=== PATIENT | female | born 1990 | race Caucasian/White ===

== ENCOUNTER 2019-07-04 19:38 | Inpatient (IN) | payer MEDICAID, OTHER ==
[~2019-07-04] VITALS: Ht 160 cm; Wt 55.8 kg
[2019-07-04] MEDS ORDERED: ACETAMINOPHEN 500 MG TABLET PO ONE (20:00)
[2019-07-04] MEDS ORDERED: SODIUM CHLORIDE 0.9% 1,000ML IVBOLUS ONE (20:00)
[2019-07-04] MEDS ORDERED: ALBUTEROL/IPRATROPIUM 2.5MG/0.5MG, 3 ML NPPB ONE (20:00)
[2019-07-04] MEDS ORDERED: SODIUM CHLORIDE FLUSH 10ML SYR IVF ONE (20:00)
[2019-07-04] MEDS ORDERED: ACETAMINOPHEN 500 MG TABLET ONE ×2 (20:10→20:11)
[2019-07-04 20:49] LABS: BASOPHILS # (AUTO) 0.01 x10^3/uL (0-0.1); BASOPHILS % (AUTO) 0 % (0-1); EOSINOPHILS % (AUTO) 0 % (1-7); LYMPHOCYTES # (AUTO) 0.52 x10^3/uL (1-3.4); LYMPHOCYTES % (AUTO) 5 % (22-44); MD NO; MEAN CORPUSCULAR HEMOGLOBIN 30.3 pg (27.0-34.8); MEAN CORPUSCULAR HGB CONC 32.4 g/dL (32.4-35.8); MEAN CORPUSCULAR VOLUME 93.4 fL (80-100); MEAN PLATELET VOLUME 8.2 fL (7.4-10.4); MONOCYTES # (AUTO) 0.65 x10^3/uL (0.2-0.8); MONOCYTES % (AUTO) 6 % (2-9); NEUTROPHILS # (AUTO) 8.97 x10^3/uL (1.8-6.8); NEUTROPHILS % (AUTO) 88 % (42-75); PLATELET COUNT 182 x10^3/uL (130-400); RED BLOOD COUNT 4.91 x10^6/uL (3.82-5.3); RED CELL DISTRIBUTION WIDTH 13.6 % (9.6-15.2)
[2019-07-04] MEDS ORDERED: ALBU1.25 NEB (20:56)
[2019-07-04 20:59] LABS: ALANINE AMINOTRANSFERASE 29 U/L (12-78); ALBUMIN 3.2 g/dL (3.4-5.0); ANION GAP 5 mmol/L (5-15); CALCIUM 8.2 mg/dL (8.5-10.1); CHLORIDE 102 mmol/L (98-107); CREATININE 1.04 mg/dL (0.55-1.02)
[2019-07-04 21:01] LABS: ALKALINE PHOSPHATASE 64 U/L (45-117); BILIRUBIN,TOTAL 0.4 mg/dL (0.2-1.0); TOTAL PROTEIN 8.2 g/dL (6.4-8.2)
[2019-07-04 21:57] LABS: HCG UR SG 1.023 (1.003-1.030)
[2019-07-04 21:59] LABS: MICROSCOPIC INDICATED
[2019-07-04 22:00] LABS: CULTURE INDICATED? YES
--- NOTE | 2019-07-04 23:02 | NUR ---
PT ON O2 MASK, PT STILL LETHARGIC AND DESATS IN TO 80'S % WHEN ON ROOM AIR.
[2019-07-04] MEDS ORDERED: NALOXONE 0.4 MG/ML, 1ML ONE (23:08)
[2019-07-04] MEDS ORDERED: CEFTRIAXONE PMX 2GM/50ML 50 ML ONE (23:17)
[2019-07-04] MEDS ORDERED: CEFTRIAXONE PMX 2GM/50ML 50 ML IV SCH (23:30)
[2019-07-04] MEDS ORDERED: NALOXONE 0.4 MG/ML, 1ML IVPush ONE (23:30)
[2019-07-04] MEDS ORDERED: SODIUM CHLORIDE 0.9% 1,000 ML IV SCH (23:38)
[2019-07-05] MEDS ORDERED: CEFTRIAXONE PMX 1GM/50ML 50 ML IV SCH
[2019-07-05] MEDS ORDERED: ONDANSETRON ODT 4 MG PO PRN
[2019-07-05] MEDS ORDERED: POLYETHYLENE GLYCOL 17 GM PACKET PO PRN
[2019-07-05] MEDS ORDERED: HEPARIN 5,000 UNITS/ML, 1ML SQ SCH
[2019-07-05] MEDS ORDERED: BISACODYL 10 MG SUPP PR PRN
[2019-07-05 01:03] VITALS: BP 90/54
[2019-07-05 06:54] VITALS: BP 103/71
[2019-07-05] MEDS ORDERED: ACETAMINOPHEN 325 MG TABLET PO PRN ×2 (07:30)
[2019-07-05] MEDS: NICOTINE 14MG/24 HR PATCH.TD24 TD SCH (07:30)
[2019-07-05] MEDS ORDERED: SENNA/DOCUSATE TABLET PO SCH (09:00)
[2019-07-05 11:11] LABS: MEAN CORPUSCULAR HEMOGLOBIN 29.9 pg (27.0-34.8); MEAN CORPUSCULAR HGB CONC 32.5 g/dL (32.4-35.8); MEAN PLATELET VOLUME 8.8 fL (7.4-10.4); PLATELET COUNT 163 x10^3/uL (130-400); RED BLOOD COUNT 4.28 x10^6/uL (3.82-5.3); RED CELL DISTRIBUTION WIDTH 13.6 % (9.6-15.2)
[2019-07-05 11:16] LABS: ALANINE AMINOTRANSFERASE 24 U/L (12-78); ALBUMIN 2.7 g/dL (3.4-5.0); ANION GAP 9 mmol/L (5-15); CALCIUM 7.6 mg/dL (8.5-10.1); CHLORIDE 103 mmol/L (98-107); CREATININE 0.72 mg/dL (0.55-1.02)
[2019-07-05 11:19] LABS: ALKALINE PHOSPHATASE 55 U/L (45-117); BILIRUBIN,TOTAL 0.5 mg/dL (0.2-1.0); TOTAL PROTEIN 7.1 g/dL (6.4-8.2)
[2019-07-05 11:54] LABS: MD YES
[2019-07-05 11:57] LABS: BAND#(MANUAL) 1.96 x10^3/uL; BANDS%(MANUAL) 19 % (0-7); LYMPH#(MANUAL) 0.82 x10^3/uL (1-3.4); LYMPHS% (MANUAL) 8 % (22-44); MONOS#(MANUAL) 0.41 x10^3/uL (0.3-2.7); MONOS% (MANUAL) 4 % (2-9); SEG#(MANUAL) 7.11 x10^3/uL (1.8-6.8); SEGS% (MANUAL) 69 % (42-75)
[2019-07-05 11:58] LABS: <PLATELET ESTIMATE> ADEQUATE; <PLT MORPHOLOGY> NORMAL PLT MORPH; <RBC MORPHOLOGY> NORMAL; PMNS WITH VACUOLES 1+
[2019-07-05] MEDS: HEPARIN 5,000 UNITS/ML, 1ML SQ SCH (12:00)
[2019-07-05 12:19] VITALS: BP 103/66
[2019-07-05 12:30] LABS: RAPID INFLUENZA A Negative (Negative); RAPID INFLUENZA B Negative (Negative)
[2019-07-05 12:59] LABS: O2 FLOW 3 L/min
[2019-07-05] MEDS: LORazepam 2 MG/ML, 1ML IVPush PRN ×2 (14:01→17:39)
[2019-07-05] MEDS ORDERED: POTASSIUM CHLORIDE 20 MEQ TAB.ER.PRT PO ONE (15:00)
[2019-07-05 17:39] VITALS: BP 126/85
[2019-07-05 19:53] VITALS: BP 129/87
[2019-07-05] MEDS ORDERED: SODIUM CHLORIDE 0.9% 1,000 ML IV SCH (23:38)
[2019-07-06] MEDS: CEFTRIAXONE PMX 2GM/50ML 50 ML IV SCH ×2 (00:10→23:35)
[2019-07-06] MEDS: LORazepam 2 MG/ML, 1ML IVPush PRN ×2 (00:10→12:03)
[2019-07-06 00:48] VITALS: BP 120/80
[2019-07-06 05:37] LABS: ANION GAP 6 mmol/L (5-15); BASOPHILS # (AUTO) 0.02 x10^3/uL (0-0.1); BASOPHILS % (AUTO) 0 % (0-1); CALCIUM 8.4 mg/dL (8.5-10.1); CHLORIDE 108 mmol/L (98-107); EOSINOPHILS # (AUTO) 0.07 x10^3/uL (0-0.4); EOSINOPHILS % (AUTO) 1 % (1-7); LYMPHOCYTES # (AUTO) 1.23 x10^3/uL (1-3.4); LYMPHOCYTES % (AUTO) 14 % (22-44); MD NO; MEAN CORPUSCULAR HEMOGLOBIN 30.2 pg (27.0-34.8); MEAN CORPUSCULAR HGB CONC 32.7 g/dL (32.4-35.8); MEAN CORPUSCULAR VOLUME 92.3 fL (80-100); MEAN PLATELET VOLUME 8.3 fL (7.4-10.4); MONOCYTES # (AUTO) 0.49 x10^3/uL (0.2-0.8); MONOCYTES % (AUTO) 6 % (2-9); NEUTROPHILS # (AUTO) 6.94 x10^3/uL (1.8-6.8); NEUTROPHILS % (AUTO) 79 % (42-75); PLATELET COUNT 172 x10^3/uL (130-400); RED BLOOD COUNT 4.33 x10^6/uL (3.82-5.3); RED CELL DISTRIBUTION WIDTH 13.3 % (9.6-15.2)
[2019-07-06 05:39] LABS: CREATININE 0.48 mg/dL (0.55-1.02)
[2019-07-06 07:23] VITALS: BP 137/67
[2019-07-06] MEDS ORDERED: SENNA/DOCUSATE TABLET PO PRN (07:30)
[2019-07-06] MEDS: NICOTINE 14MG/24 HR PATCH.TD24 TD SCH (07:30)
[2019-07-06] MEDS: LACTOBACILLUS CHEW TABLET PO SCH ×3 (08:39→20:45)
[2019-07-06] MEDS ORDERED: ONDANSETRON 2MG/ML, 2ML IVPush PRN (09:30)
[2019-07-06] MEDS ORDERED: DIPHENOXYLATE/ATROPINE TABLET PO PRN (09:30)
[2019-07-06] MEDS ORDERED: ALBUTEROL SULFATE 2.5 MG/3 ML NPPB PRN (11:00)
[2019-07-06] MEDS: HEPARIN 5,000 UNITS/ML, 1ML SQ SCH ×3 (12:00→23:37)
[2019-07-06 13:48] VITALS: BP 122/78
[2019-07-06 20:12] VITALS: BP 120/80
[2019-07-06] MEDS ORDERED: SODIUM CHLORIDE 0.9% 1,000 ML IV SCH (23:38)
[2019-07-07 03:16] VITALS: BP 123/68
[2019-07-07] MEDS: NICOTINE 14MG/24 HR PATCH.TD24 TD SCH (08:03)
[2019-07-07] MEDS: LACTOBACILLUS CHEW TABLET PO SCH (08:03)
[2019-07-07] MEDS: LORazepam 2 MG/ML, 1ML IVPush PRN (08:25)
[2019-07-07 08:35] VITALS: BP 129/79
[2019-07-07] MEDS ORDERED: CARVEDILOL 3.125 MG TABLET ONE (08:52)
[2019-07-07] MEDS ORDERED: AMOXICILLIN 500 MG CAPSULE PO SCH (09:00)
[2019-07-07] MEDS ORDERED: DOXYCYCLINE 100MG TABLET PO SCH (09:00)
== END 2019-07-07 10:57 | disposition left against medical advice (07) | DRG 871 ==
LOC: ED 23:56 → EDIP 23:59 → 4WST 07-05 01:09
PROVIDERS: ADMIT Internal Medicine; ATTEND Internal Medicine
DX: A41.9 Sepsis, unspecified organism (principal); J18.9 Pneumonia, unspecified organism; J96.01 Acute respiratory failure with hypoxia; E87.1 Hypo-osmolality and hyponatremia; N39.0 Urinary tract infection, site not specified; T40.1X1A Poisoning by heroin, accidental (unintentional), initial encounter; F11.10 Opioid abuse, uncomplicated; F17.210 Nicotine dependence, cigarettes, uncomplicated; I10 Essential (primary) hypertension; J45.909 Unspecified asthma, uncomplicated; K59.00 Constipation, unspecified; Z53.29 Procedure and treatment not carried out because of patient's decision for other reasons; R56.9 Unspecified convulsions; R65.20 Severe sepsis without septic shock; T40.605A Adverse effect of unspecified narcotics, initial encounter; Z91.19 Patient's noncompliance with other medical treatment and regimen
CPT/HCPCS: 36415; 36600; 87400; 87806; 96365; 96375; 99285; J7620; 71045; 80048; 80053; 80074; 81001; 81025; 82803; 83605; 83690; 83735; 85025; 87040; 87086; 93005; 94640; G0378; J0696; J1644; J2310; Q0162; G0475; J2060; J7030

== ENCOUNTER 2019-09-12 16:54 | Emergency (ER) | payer MEDICAID ==
[~2019-09-12] VITALS: Ht 160 cm; Wt 52.2 kg
[~2019-09-12 16:54] MED LIST: ALBU1.25 NEB
--- NOTE | 2019-09-12 17:22 | NUR ---
PT ARRIVED TO ROOM 28 VIA [facility]. PT WAS GAMBLING AT [employer], AND BEGAN VOMITING A YELLOW BILE. PT ADMITS TO SHOOTING UP HEROIN AND METH APPROXIMATELY 3 HOURS AGO. ZOFRAN GIVEN BY EMS ALONG WITH A 250CC NACL BOLUS THROUGH A 20GA IN LEFT FOREARM. PT O2 SATS ON ROOM AIR WERE 70%, SO OXYGEN AT 2L VIA NC WAS STARTING BRINGING SATS UP TO 99%. PT RESP RATE IS 8/MIN. PT FALLS ASLEEP DURING QUESTIONING, BUT REQUESTS TO "GET CLEAN". PT USES DRUGS ON A DAILY BASIS. PT PLACED ON MONITOR AND OXYGEN AND WILL BE MONITORED FOR POOR RESP STATUS.
[2019-09-12] MEDS ORDERED: SODIUM CHLORIDE FLUSH 10ML SYR IVF ONE (17:30)
[2019-09-12] MEDS ORDERED: ONDANSETRON 2MG/ML, 2ML ONE (17:30)
[2019-09-12] MEDS ORDERED: ONDANSETRON 2MG/ML, 2ML IVPush ONE (17:30)
[2019-09-12 17:37] LABS: BASOPHILS # (AUTO) 0.03 x10^3/uL (0-0.1); BASOPHILS % (AUTO) 0 % (0-1); EOSINOPHILS # (AUTO) 0.13 x10^3/uL (0-0.4); EOSINOPHILS % (AUTO) 1 % (1-7); LYMPHOCYTES # (AUTO) 1.83 x10^3/uL (1-3.4); LYMPHOCYTES % (AUTO) 12 % (22-44); MD NO; MEAN CORPUSCULAR HEMOGLOBIN 28.8 pg (27.0-34.8); MEAN CORPUSCULAR HGB CONC 32.8 g/dL (32.4-35.8); MEAN CORPUSCULAR VOLUME 87.8 fL (80-100); MEAN PLATELET VOLUME 8.1 fL (7.4-10.4); MONOCYTES # (AUTO) 0.33 x10^3/uL (0.2-0.8); MONOCYTES % (AUTO) 2 % (2-9); NEUTROPHILS # (AUTO) 12.42 x10^3/uL (1.8-6.8); NEUTROPHILS % (AUTO) 84 % (42-75); PLATELET COUNT 222 x10^3/uL (130-400); RED BLOOD COUNT 4.53 x10^6/uL (3.82-5.3); RED CELL DISTRIBUTION WIDTH 13.7 % (9.6-15.2)
--- NOTE | 2019-09-12 17:40 | NUR ---
IV ZOFRAN GIVEN X1 WITHOUT DIFF. PT VERY CONCERNED THAT RN WAS GIVING HER NARCAN. RN SHOWS MEDICATION BOTTLE TO PATIENT TO CONFIRM THAT NO NARCAN IS BEING GIVEN. CXR AND EKG HAVE BEEN DONE. PT GIVEN A WARM BLANKET. PT INFORMED THAT IF SHE DOESN'T CONTINUE TO BREATH, SHE MAY GET NARCAN FOR EMERGENCY PURPOSES, BUT NO ORDER HAS BEEN WRITTEN. PT FALLS TO SLEEP READILY, CONTINUES WITH SLOW RESPIRATIONS, BUT SATS WITH 2L OXYGEN PER NC ARE ABOVE 90%.
[2019-09-12 17:42] LABS: ALANINE AMINOTRANSFERASE 45 U/L (12-78); ALBUMIN 3.2 g/dL (3.4-5.0); ANION GAP 6 mmol/L (5-15); CALCIUM 8.6 mg/dL (8.5-10.1); CHLORIDE 108 mmol/L (98-107); CREATININE 0.56 mg/dL (0.55-1.02)
[2019-09-12 17:46] LABS: ALKALINE PHOSPHATASE 93 U/L (45-117); BILIRUBIN,TOTAL 0.2 mg/dL (0.2-1.0); TOTAL PROTEIN 8.6 g/dL (6.4-8.2)
--- NOTE | 2019-09-12 18:09 | NUR ---
PT AWAKE A/O X4. PT SITTING UP IN BED, STATES "I FEEL A LITTLE BIT BETTER" CONTINUE TO MONITOR PATIENT.
--- NOTE | 2019-09-12 19:21 | NUR ---
BREAK RN: MD TO BEDSIDE. PT BEING TRIALED OFF O2 AT THIS TIME. PO CHALLENGE IN PROGRESS WITH SPRITE PER PT REQUEST.
[2019-09-12 19:25] VITALS: BP_DIAS 73
[2019-09-12 20:57] VITALS: BP_SYST 127
--- NOTE | 2019-09-12 21:03 | NUR ---
DISCHARGE INSTRUCTIONS GIVEN TO PATIENT WITH ONE PRESCRIPTION FOR ZOFRAN. PT VERBALIZES UNDERSTANDING OF ALL INSTRUCTIONS AND FOLLOW UP. DISCUSSED AT LENGTH PROBLEMS WITH ABUSING DRUGS. IV REMOVED WITH CATH INTACT. PT AMBULATED OUT OF ED PER PEDIS WITH STRONG STEADY GAIT.
== END 2019-09-12 21:07 | disposition home or self-care (01) ==
LOC: MERGE 16:54 → ED 21:06
DX: R11.2 Nausea with vomiting, unspecified (principal); F15.10 Other stimulant abuse, uncomplicated; F11.10 Opioid abuse, uncomplicated; R10.9 Unspecified abdominal pain; R06.02 Shortness of breath; J45.909 Unspecified asthma, uncomplicated; F17.200 Nicotine dependence, unspecified, uncomplicated; Z98.51 Tubal ligation status
CPT/HCPCS: 36415; 71045; 80053; 83690; 84703; 85025; 93005; 96374; 99285; J2405

== ENCOUNTER 2019-12-16 17:20 | Emergency (ER) | payer MEDICAID ==
[~2019-12-16] VITALS: Ht 157.5 cm; Wt 55.0 kg
--- NOTE | 2019-12-16 17:24 | NUR ---
EFFICIENCY EXPERT: PT CALLED FOR TRIAGE, NO ANSWER "IN BR"
[2019-12-16 17:25] VITALS: BP 159/96
[2019-12-16] MEDS ORDERED: LIDOCAINE 1%, 10ML INFIL ONE (18:00)
[2019-12-16] MEDS ORDERED: LIDOCAINE-MPF 1%, 5ML ONE (18:09)
--- NOTE | 2019-12-16 18:15 | NUR ---
Michelle NORIEGA at bedside to drain abcess
--- NOTE | 2019-12-16 18:23 | NUR ---
discharge instructions reviewed
== END 2019-12-16 18:36 | disposition home or self-care (01) ==
LOC: ED 18:25
DX: L02.413 Cutaneous abscess of right upper limb (principal); L03.113 Cellulitis of right upper limb; I10 Essential (primary) hypertension; J45.909 Unspecified asthma, uncomplicated; F17.200 Nicotine dependence, unspecified, uncomplicated; Z98.51 Tubal ligation status
CPT/HCPCS: 10060; 99283; J3490

== ENCOUNTER 2021-01-01 14:32 | Emergency (ER) | payer MEDICAID ==
[~2021-01-01] VITALS: Ht 157.5 cm; Wt 64.0 kg
--- NOTE | 2021-01-01 14:37 | NUR ---
ACCIDENTILLY OVERDOSED ON HEROIN-BECAME LISTLESS. FRIEND GAVE NARCAN INTRANASALLY. CODE 250 AT ER ENTRANCE. ROUSED TO LOUD VOICE. WITH ASSESSMENT PATIENT MORE AND MORE ALERT VSS/PROTECTING AIRWAY ALSO WITH ASTHMA EXACERBATION (ISSUE PRIOR TO HEROIN USE)
[2021-01-01] MEDS ORDERED: ALBUTEROL/IPRATROPIUM 2.5MG/0.5MG, 3 ML ONE (14:44)
[2021-01-01] MEDS ORDERED: PROMETHAZINE 25 MG/ML, 1ML ONE (14:46)
--- NOTE | 2021-01-01 14:53 | NUR ---
REPORT FROM CHUY AKERS
[2021-01-01] MEDS ORDERED: PROMETHAZINE 25 MG/ML, 1ML IM ONE (15:00)
[2021-01-01] MEDS ORDERED: NALOXONE 0.4 MG/ML, 1ML IVPush PRN (15:00)
[2021-01-01] MEDS ORDERED: ALBUTEROL/IPRATROPIUM 2.5MG/0.5MG, 3 ML NEB ONE (15:00)
--- NOTE | 2021-01-01 15:03 | NUR ---
REPORT TO JAYNA AKERS
[2021-01-01 15:05] VITALS: BP 152/99
--- NOTE | 2021-01-01 15:06 | NUR ---
PT GIVEN BREATHING TX, PT TOOK 2 PUFFS AND THREW NEBULIZER ON GROUND AND YELLED "IM NOT DOING THIS ANYMORE". PT NOW BENT OVER LAYING ON GURNEY COVERED IN SHEET REFUSING OTHER INTERVENTIONS. MD AMADOR
== END 2021-01-01 16:00 | disposition home or self-care (01) ==
LOC: ED 15:54
DX: T40.1X1A Poisoning by heroin, accidental (unintentional), initial encounter (principal); J96.01 Acute respiratory failure with hypoxia; I10 Essential (primary) hypertension; J45.909 Unspecified asthma, uncomplicated; X58.XXXA Exposure to other specified factors, initial encounter
CPT/HCPCS: 94640; 96372; 99283; J2550